=== PATIENT | female | born 1970 | race African-American/Black ===

== ENCOUNTER 2021-06-23 16:34 | Emergency (ER) | payer OTHER ==
[~2021-06-23] VITALS: Ht 165.1 cm; Wt 108.9 kg
--- NOTE | 2021-06-23 16:45 | NUR ---
BIBS THIS 50YO FEMALE PATIENT AMBULATORY. ALERT ORIENTED X4. CC OF BURNING SENSATION AT MIDSTINAL AREA RADIATING TO LEFT SHOULDER AND ARM TO LEFT SHOULDER BLADE. PATIENT PLACED COMFORTABLY ON BED.
--- NOTE | 2021-06-23 16:50 | NUR ---
SEEN BY ER WITH ORDERS TO BE CARRIED OUT
--- NOTE | 2021-06-23 17:00 | NUR ---
IV CANNULA G20 INSERTED ON RIGHT AC, BLOOD DRAWN AND GIVEN TO DIRECTOR PERIOPERATIVE SANDRA
[2021-06-23 17:24] LABS: BASOPHILS # (AUTO) 0.1 K/uL (0.0-0.2); BASOPHILS % (AUTO) 0.6 % (0.0-2.0); EOSINOPHILS % (AUTO) 1.1 % (0.0-6.0); HEMATOCRIT 40 % (33-45); HEMOGLOBIN 13.2 g/dL (11.5-14.8); LYMPHOCYTES # (AUTO) 3.2 K/uL (0.8-4.8); MEAN CORPUSCULAR HGB CONC 33 g/dl (31.0-36.0); MEAN CORPUSCULAR VOLUME 89 fL (82-100); MONOCYTES # (AUTO) 0.9 K/uL (0.1-1.30); MONOCYTES % (AUTO) 7.4 % (2.0-12.0); NEUTROPHILS # (AUTO) 7.3 K/uL (1.8-8.9); NEUTROPHILS % (AUTO) 62.9 % (43.0-81.0); PLATELET COUNT (AUTO) 382 K/uL (150-450); RED BLOOD CELL COUNT(AUTO) 4.43 MIL/uL (4.0-5.2); WHITE BLOOD COUNT (AUTO) 11.6 K/uL (4.3-11.0)
[2021-06-23 17:37] LABS: CALCIUM, SERUM 9.1 mg/dL (8.5-10.1); CARBON DIOXIDE 29 mmol/L (21-32); CHLORIDE 101 mmol/L (98-107); CREATININE 0.7 mg/dL (0.6-1.3); GLUCOSE 92 mg/dL (74-106); POTASSIUM 3.8 mmol/L (3.5-5.1); SODIUM SERUM 136 mmol/L (136-145); UREA NITROGEN, BLOOD 9 mg/dL (7-18)
--- NOTE | 2021-06-23 18:35 | NUR ---
IV removed. Catheter intact and site benign. Pressure and 4x4 applied to site. No bleeding noted.Patient discharged to home in stable condition. Written and verbal after care instructions given. Patient verbalizes understanding of instruction.
[2021-06-23 18:36] VITALS: BP 132/75
== END 2021-06-23 18:36 | disposition home or self-care (01) ==
LOC: ER 16:42
DX: R07.89 Other chest pain (principal); Z87.42 Personal history of other diseases of the female genital tract
CPT/HCPCS: 36415; 71045-TC; 80048-TC; 84484-TC; 85025-TC